=== PATIENT | female | born 1995 | race Two or more races ===

== ENCOUNTER 2021-02-06 13:57 | Outpatient (CLI) | payer OTHER | END 2021-02-06 14:56 | disposition home or self-care (01) | LOC: OFIC 805 13:57 | PROVIDERS: ATTEND Otolaryngology Otology & Neurotology | DX: H93.8X3 Other specified disorders of ear, bilateral (principal); H69.83 Other specified disorders of Eustachian tube, bilateral; J31.0 Chronic rhinitis; G25.0 Essential tremor ==

== ENCOUNTER 2023-06-15 14:02 | Emergency (ER) | payer OTHER ==
[~2023-06-15] VITALS: Ht 160 cm; Wt 76.2 kg
== END 2023-06-15 21:59 | disposition left against medical advice (07) ==
LOC: ER 14:02
PROVIDERS: Nurse Practitioner Family
DX: J10.2 Influenza due to other identified influenza virus with gastrointestinal manifestations (principal); Z20.822 Contact with and (suspected) exposure to COVID-19; Z91.012 Allergy to eggs

== ENCOUNTER 2023-11-29 02:56 | Emergency (ER) | payer OTHER ==
[~2023-11-29] VITALS: Ht 160 cm; Wt 75.7 kg
[2023-11-29] MEDS ORDERED: METOCLOPRAMIDE HCL 5 MG/ML VIAL IM STA (04:02)
[2023-11-29] MEDS ORDERED: RINGERS SOLUTION,LACTATED 1,000 ML IV STA (04:03)
[2023-11-29] MEDS ORDERED: ONDANSETRON HCL 2 MG/ML VIAL IV STA (04:03)
[2023-11-29] MEDS ORDERED: FAMOtidine 10 MG/ML (4ML VIAL) IV PUSH STA (04:04)
[2023-11-29] MEDS ORDERED: HYOSCYAMINE SULFATE 0.125 MG TAB.SUBL SL ONE (04:15)
== END 2023-11-29 05:34 | disposition home or self-care (01) ==
LOC: ER 02:56
DX: K29.70 Gastritis, unspecified, without bleeding (principal); Z91.012 Allergy to eggs; Z91.018 Allergy to other foods

== ENCOUNTER 2024-09-30 21:49 | Emergency (ER) | payer OTHER ==
[~2024-09-30] VITALS: Ht 160 cm; Wt 74.8 kg
[2024-09-30 22:14] VITALS: BP 129/82; O2SAT 100
[2024-10-01] MEDS ORDERED: FAMOTIDINE/PF 20 MG/2 ML VIAL IV PUSH STA (00:11)
[2024-10-01] MEDS ORDERED: KETOROLAC TROMETHAMINE 30 MG VIAL IV STA (00:12)
[2024-10-01] MEDS ORDERED: PROMETHAZINE HCL 50 MG/ML AMPUL IM STA (00:12)
[2024-10-01] MEDS ORDERED: ORPHENADRINE CITRATE 30 MG/ML AMPUL IV STA (00:12)
[2024-10-01] MEDS ORDERED: DEXTROSE 5 % AND 0.9 % NACL 1,000 ML IV ONE (00:15)
[2024-10-01] MEDS ORDERED: ESGIC 50-325-41 EACH PO ×2 (02:12)
== END 2024-10-01 02:24 ==
LOC: ER 21:51
DX: G43.909 Migraine, unspecified, not intractable, without status migrainosus (principal); Z91.012 Allergy to eggs; Z91.018 Allergy to other foods

== ENCOUNTER 2025-03-17 21:04 | Emergency (ER) | payer OTHER ==
[~2025-03-17] VITALS: Ht 162.6 cm; Wt 63.5 kg
[~2025-03-17 21:04] MED LIST: ESGIC 50-325-41 EACH PO
[2025-03-17] MEDS ORDERED: FAMOTIDINE/PF 20 MG in 0.9 % SODIUM CHLORIDE 8 ML IV PUSH STA (21:33)
[2025-03-17] MEDS ORDERED: 0.9 % SODIUM CHLORIDE 1,000 ML IV SCH (21:45)
[2025-03-17] MEDS ORDERED: METOCLOPRAMIDE HCL 10 MG in DEXTROSE 5 % IN WATER 50 ML IV ONE (21:45)
[2025-03-17] MEDS ORDERED: METOCLOPRAMIDE HCL 5 MG/ML VIAL ONE (21:55)
[2025-03-17] MEDS ORDERED: FAMOTIDINE/PF 20 MG/2 ML VIAL ONE (21:55)
[2025-03-17 23:16] LABS: BASO % 0.4 % (0.1-1.2); EOS # 0.12 (0.04-0.54); EOS % 0.8 % (0.7-7.0); HEMATOCRIT 36.1 % (34.1-44.9); LYMPH # 2.68 (1.18-3.74); LYMPH % 18.3 % (19.3-53.1); MEAN CORPUSCULAR HEMOGLOBIN 27.9 pg (25.6-32.2); MONO # 0.91 (0.24-0.82); MONO % 6.2 % (4.7-12.5); PLATELET COUNT 471 K/uL (163-369); RED CELL DISTRIBUTION WIDTH 12.9 % (11.6-14.4)
[2025-03-17 23:53] LABS: ALBUMIN 4.2 gm/dL (3.4-5.0); BILIRUBIN TOTAL 0.58 mg/dL (0.3-1.2); CALCIUM 9.2 mg/dL (8.5-10.1); CREATININE SERUM 0.53 mg/dL (0.55-1.02); GFR 138.38; GLOBULINA 4.3 G/DL (2.4-3.5); POTASSIUM 3.39 mEq/L (3.5-5.1); TOTAL PROTEIN 8.5 gm/dL (6.4-8.2)
[2025-03-18] MEDS ORDERED: PEPCID40 MG PO (01:08)
[2025-03-18] MEDS ORDERED: ONDANSETRON ODT4 MG PO (01:08)
== END 2025-03-18 01:36 ==
LOC: ER 21:21
PROVIDERS: General Practice
DX: O21.0 Mild hyperemesis gravidarum (principal); Z3A.01 Less than 8 weeks gestation of pregnancy; Z91.012 Allergy to eggs; Z91.018 Allergy to other foods

== ENCOUNTER 2025-03-23 13:26 | Emergency (ER) | payer OTHER ==
[~2025-03-23] VITALS: Ht 160 cm; Wt 70.8 kg
[~2025-03-23 13:26] MED LIST changes: +ONDANSETRON ODT4 MG PO; +PEPCID40 MG PO
[2025-03-23] MEDS ORDERED: 0.9 % SODIUM CHLORIDE 1,000 ML IV ONE (15:00)
[2025-03-23] MEDS ORDERED: ONDANSETRON HCL 2 MG/ML VIAL IV ONE (15:00)
[2025-03-23] MEDS ORDERED: FAMOTIDINE/PF 20 MG/2 ML VIAL IV ONE (15:00)
[2025-03-23] MEDS ORDERED: ONDANSETRON HCL 2 MG/ML VIAL ONE (15:19)
[2025-03-23] MEDS ORDERED: FAMOTIDINE/PF 20 MG/2 ML VIAL ONE (15:19)
[2025-03-23 15:40] LABS: BASO % 0.5 % (0.1-1.2); EOS # 0.05 (0.04-0.54); EOS % 0.3 % (0.7-7.0); HEMATOCRIT 37.2 % (34.1-44.9); HEMOGLOBIN 12.9 g/dL (11.2-15.7); LYMPH # 2.79 (1.18-3.74); MEAN CORPUSCULAR HEMOGLOBIN 28.7 pg (25.6-32.2); MONO # 0.78 (0.24-0.82); MONO % 5.3 % (4.7-12.5); NEUT # 10.93 (1.56-6.13); NEUT % 74.5 % (34.0-71.1); PLATELET COUNT 509 K/uL (163-369); RED BLOOD COUNT 4.49 M/uL (3.93-5.22); RED CELL DISTRIBUTION WIDTH 12.3 % (11.6-14.4)
[2025-03-23 16:39] LABS: ALBUMIN 4.3 gm/dL (3.4-5.0); BILIRUBIN TOTAL 0.47 mg/dL (0.3-1.2); BILIRUBIN,CONJUGATED 0.13 mg/dL (0.0-0.2); BILIRUBIN,UNCONJUGATED 0.34 mg/dL (0.0-0.6); CALCIUM 9.5 mg/dL (8.5-10.1); CREATININE SERUM 0.52 mg/dL (0.55-1.02); GFR 141.45; GLOBULINA 4.2 G/DL (2.4-3.5); POTASSIUM 4.43 mEq/L (3.5-5.1); TOTAL PROTEIN 8.5 gm/dL (6.4-8.2)
[2025-03-23] MEDS ORDERED: SUCRALFATE 1 G TABLET PO ONE (17:15)
[2025-03-23] MEDS ORDERED: DICLEGIS DR 101 EACH PO (19:34)
== END 2025-03-23 19:51 | disposition home or self-care (01) ==
LOC: ER 13:26
PROVIDERS: General Practice
DX: O21.0 Mild hyperemesis gravidarum (principal); Z3A.08 8 weeks gestation of pregnancy; K29.70 Gastritis, unspecified, without bleeding; R10.9 Unspecified abdominal pain; Z88.8 Allergy status to other drugs, medicaments and biological substances; Z91.012 Allergy to eggs; Z91.013 Allergy to seafood